=== PATIENT | male | born 1950 | race Caucasian/White ===

== ENCOUNTER 2016-06-10 06:29 | Inpatient (IN) | payer MEDICAID, OTHER ==
[~2016-06-10] VITALS: Ht 160 cm; Wt 67.4 kg
[2016-06-10] MEDS ORDERED: morphine 4 MG/ML VIAL IV STA ×2 (07:11→09:46)
[2016-06-10] MEDS ORDERED: SOD CHLORIDE 0.9% 1,000 ML IV STA (07:11)
[2016-06-10] MEDS ORDERED: ONDANSETRON 4 MG INJ IV STA (07:11)
[2016-06-10 07:40] LABS: ADD UMIC NO; BASOPHIL # 0.1 10^3/ul (0.0-0.1); BASOPHILS % 0.5 % (0.0-2.0); EOSINOPHILS # 0.2 10^3/ul (0.0-0.5); EOSINOPHILS % 1.4 % (0.0-7.0); HEMATOCRIT 46.2 % (42.0-52.0); HEMOGLOBIN 15.9 g/dl (14.0-18.0); LYMPHOCYTES # 1.2 10^3/ul (0.8-2.9); LYMPHOCYTES % 9.1 % (15.0-51.0); MEAN CORPUSCULAR HGB CONC 34.3 g/dl (32.0-37.0); MEAN CORPUSCULAR VOLUME 90.5 fl (82.0-101.0); MEAN PLATELET VOLUME 7.2 fl (7.4-10.4); MONOCYTE # 0.5 10^3/ul (0.3-0.9); MONOCYTES % 4.1 % (0.0-11.0); NEUTROPHIL # 11.2 10^3/ul (1.6-7.5); NEUTROPHILS % 84.9 % (39.0-77.0); PLATELET COUNT 226 10^3/UL (140-440); RED BLOOD COUNT 5.11 10^6/ul (4.70-6.10); RED CELL DISTRIBUTION WIDTH 13.7 % (11.5-14.5); UNCORRECTED WBC 13.2 10^3/ul (4.8-10.8); URINE BILIRUBIN (Dip) NEGATIVE (NEGATIVE); URINE BLOOD (Dip) NEGATIVE (NEGATIVE); URINE COLOR LT. YELLOW (YELLOW); URINE GLUCOSE (Dip) NEGATIVE (NEGATIVE); URINE KETONES (Dip) NEGATIVE (NEGATIVE); URINE LEUKOCYTE ESTERASE (Dip) NEGATIVE (NEGATIVE); URINE NITRITE (Dip) NEGATIVE (NEGATIVE); URINE TOTAL PROTEIN (Dip) NEGATIVE (NEGATIVE); URINE UROBILINOGEN (Dip) 0.2 E.U./dL (0.1-1.0); WHITE BLOOD COUNT 13.2 10^3/ul (4.8-10.8)
[2016-06-10 07:50] LABS: CONDITION 1
[2016-06-10 07:55] LABS: ALBUMIN 4.5 g/dl (3.3-4.9)
[2016-06-10 07:56] LABS: POTASSIUM 4.1 mmol/L (3.5-5.1)
[2016-06-10 07:58] LABS: ALBUMIN/GLOBULIN RATIO 1.15; BILIRUBIN,INDIRECT 0.4 mg/dl (0-1.1); BILIRUBIN,TOTAL 0.4 mg/dl (0.2-1.3); CALCIUM 9.8 mg/dl (8.4-10.2); TOTAL PROTEIN 8.4 g/dl (6.1-8.1)
[2016-06-10] MEDS ORDERED: SOD CHLORIDE 0.9% 100 ML ONE (08:02)
[2016-06-10] MEDS ORDERED: IOHEXOL 300MG/ML 150 ML BTL ONE (08:02)
--- NOTE | 2016-06-10 08:28 | RADRPT ---
PROCEDURE: CT Abdomen and Pelvis with contrast. CLINICAL INDICATION: Abdominal pelvic pain. Distension. TECHNIQUE: CT scan of the abdomen and pelvis with contrast was performed on a multi-detector high- resolution CT scanner. The patient was scanned following the uncomplicated intravenous administrati on of 100 cc of Omnipaque 300. Coronal and sagittal reformatted images were obtained from the axial source images. Images were reviewed on a high-resolution PACS workstation. The total exam CTDI equa ls 15.32 mGy and the total exam DLP equals 884.73 mGy-cm. One or more of the following dose reduction techniques were used: - Automated exposure control. - Adjustment of the mA and/or kV according to patient size. - Use of iterative reconstruction technique. COMPARISON: None. FINDINGS: CT abdomen: The lung bases are clear. The heart size is normal, without pericardial thickening or effusion. Th e liver is normal in size and density without focal mass or intrahepatic biliary dilatation. The sp deisi is normal in size and homogeneous in density. The stomach is partially collapsed, but is gross ly unremarkable. The pancreas as visualized is normal. The gallbladder and biliary tree are unrema rkable and there is no evidence for biliary dilatation. The adrenal glands are symmetric and normal . The kidneys are symmetrically unremarkable as well. No renal calculus or obstructive uropathy or mass lesion is seen. There is mild perinephric stranding and edema bilaterally, likely benign age-r elated and senescent in nature. The aorta is of normal caliber. Aortic vascular calcifications are present. There is no retroperit chavez lymphadenopathy. The nelly hepatis region is clear. The bowel and mesentery, as visualized, are equally unremarkable. CT pelvis: The small bowel loops situated within the pelvis are unremarkable. Appendicolith is seen within the base of the appendix. The appendix is thickened and inflamed and dilated with periappendiceal infl ammatory changes consistent with appendicitis. No focal fluid collection or abscess or free air is identified at this time. The pelvic organs are remarkable for enlargement of the prostate gland. C orrelate with PSA level. The pelvic sidewalls and inguinal regions are clear. The sigmoid colon an d rectum are remarkable for sigmoid diverticulosis. No pelvic mass or adenopathy is seen. No signif icant free fluid is identified. No acute inflammation is seen. The bladder is normal. The surrounding osseous structures are remarkable for minimal multilevel degenerative spondylosis of the spine. No osteolytic or osteoblastic lesion is detected. Significant posterior element facet a rthropathy of the lower lumbar spine is identified. IMPRESSION: 1. Positive acute appendicitis. 2. No abscess or free air is identified. 3. Enlarged prostate gland. Correlate PSA level. 4. Scattered benign chronic senescent changes. Call report was made and findings discussed with Dr. Hall in the ER at 8:27 a.m. on 06/10/2016. RPTAT: HMJB .Jean Escalante MD, MD Date Time Electronically viewed and signed by .Jean Escalante MD, on 06/10/2016 08:28 .B/
--- NOTE | 2016-06-10 08:57 | ERA ---
ER Documentation Chief Complaint Date/Time DATE: 06/10/16 TIME: 08:53 Chief Complaint DIFUSE AP, NAUSEA, ABD DISTENTION, STARTING YESTERDAY NIGHT HPI Patient presents with 12 hours of gradually increasing abdominal pain. He describes nausea without any vomiting. He feels that he is generally bloated. No fever, diarrhea, flank or back pain, dysuria, hematuria. He states the pain is worse with generalized movement. The pain is better if he lies still. He denies any chest pain, shortness of breath, congestion, rhinorrhea, sore throat , or otalgia. He states he has never experienced this pain before. He has not tried to eat or drink anything since yesterday. The pain is generalized throughout his abdomen. ROS All systems reviewed and are negative except as per history of present illness. Medications Home Meds Reported Medications [None] No Conflict Check 08/12/14 Allergies Allergies: Coded Allergies: No Known Allergy (Unverified , 08/12/14) PMhx/Soc History of Surgery: No Anesthesia Reaction: No Hx Neurological Disorder: No Hx Respiratory Disorders: No Hx Cardiac Disorders: No Hx Psychiatric Problems: No Hx Miscellaneous Medical Probl: No Hx Alcohol Use: Yes (OCCASIONAL) Hx Substance Use: No Hx Tobacco Use: Yes (5-6 CIGARETTES/DAY) Smoking Status: Current every day smoker Physical Exam Vitals Vital Signs Date Time Temp Pulse Resp B/P Pulse Ox O2 Delivery O2 Flow Rate FiO2 06/10/16 06:54 98.9 91 16 153/83 95 Physical Exam Const: Well-developed well-nourished male sitting on the bed calmly Head: Atraumatic Eyes: Normal Conjunctiva ENT: Normal External Ears, Nose and Mouth. Neck: Full range of motion..~ No meningismus. Resp: Clear to auscultation bilaterally Cardio: Regular rate and rhythm, no murmurs Abd: Soft, mild tenderness in the left upper and right upper quadrants with no rebound or guarding noted, decreased bowel sounds throughout. Skin: No petechiae or rashes Back: No midline or flank tenderness Ext: No cyanosis, or edema Neur: Awake and alert Psych: Normal Mood and Affect Result Diagram: 06/10/1620 06/10/16 0720 Results 24 hrs Laboratory Tests Test 06/10/16 07:20 Alanine Aminotransferase (ALT/SGPT) 27IU/L Albumin 4.5g/dl Albumin/Globulin Ratio 1.15 Alkaline Phosphatase 115IU/L Anion Gap 18 Aspartate Amino Transf (AST/SGOT) 22IU/L Basophils # 0.110^3/ul Basophils % 0.5% Blood Morphology Comment Blood Urea Nitrogen 18mg/dl Calcium Level 9.8mg/dl Carbon Dioxide Level 25mmol/L Chloride Level 101mmol/L Creatinine 1.00mg/dl Direct Bilirubin 0.00mg/dl Eosinophils # 0.210^3/ul Eosinophils % 1.4% Globulin 3.90g/dl Glucose Level 128mg/dl Hematocrit 46.2% Hemoglobin 15.9g/dl Indirect Bilirubin 0.4mg/dl Lipase 1003U/L Lymphocytes # 1.210^3/ul Lymphocytes % 9.1% Mean Corpuscular Hemoglobin 31.0pg Mean Corpuscular Hemoglobin Concent 34.3g/dl Mean Corpuscular Volume 90.5fl Mean Platelet Volume 7.2fl Monocytes # 0.510^3/ul Monocytes % 4.1% Neutrophils # 11.210^3/ul Neutrophils % 84.9% Nucleated Red Blood Cells # 0.010^3/ul Nucleated Red Blood Cells % 0.0/100WBC Platelet Count 07910^3/UL Potassium Level 4.1mmol/L Red Blood Count 5.1110^6/ul Red Cell Distribution Width 13.7% Sodium Level 140mmol/L Total Bilirubin 0.4mg/dl Total Protein 8.4g/dl Urine Bilirubin NEGATIVE Urine Clarity CLEAR Urine Color LT. YELLOW Urine Glucose NEGATIVE% Urine Hemoglobin NEGATIVE Urine Ketones NEGATIVE Urine Leukocyte Esterase NEGATIVE Urine Nitrite NEGATIVE Urine Specific [place] 1.020 Urine Total Protein NEGATIVE Urine Urobilinogen 0.2 E.U./dL Urine pH 6.5 White Blood Count 13.210^3/ul Current Medications Medications (Trade) Dose Ordered Sig/Roque Route PRN Reason Start Time Stop Time Status Last Admin Dose Admin Sodium Chloride (NS) 1,000 ml @ 1,000 mls/hr Q1H STAT IV 06/10/16 07:11 06/10/16 08:10 DC 06/10/16 07:31 Morphine Sulfate (morphine) 4 mg ONCE STAT IV 06/10/16 07:11 06/10/16 07:15 DC 06/10/16 07:32 Ondansetron HCl (Zofran Inj) 4 mg ONCE STAT IV 06/10/16 07:11 06/10/16 07:15 DC 06/10/16 07:31 Iohexol 150 ml 150 ml STK-MED ONCE .ROUTE 06/10/16 08:02 06/10/16 08:03 DC 06/10/16 08:36 Sodium Chloride (NS) 100 ml @ ud STK-MED ONCE .ROUTE 06/10/16 08:02 06/10/16 08:03 DC 06/10/16 08:36 Procedures/MDM Consult with Dr. JONES-he asks that the hospitalist admit the patient. He requests that he give him IV antibiotics and states he will remove his appendix either later today or tomorrow. Departure Diagnosis: Primary Impression: Appendicitis Qualified Code: K35.80 - Acute appendicitis, unspecified acute appendicitis type Additional Impression: Elevated lipase Condition: Good MILTON VARGHESE Jun 10, 2016 08:57
[2016-06-10] MEDS ORDERED: ERTAPENEM SODIUM 1 GM in SOD CHLORIDE 0.9% 100 ML IVPB ONE (09:00)
[2016-06-10] MEDS ORDERED: ACETAMINOPHEN 325 MG TAB PO PRN (09:30)
[2016-06-10] MEDS ORDERED: ONDANSETRON 4 MG INJ IV PRN (09:30)
[2016-06-10 10:09] VITALS: TEMP 98.7
[2016-06-10 11:00] VITALS: BP 152/87; PULSE 91; RESP 20
[2016-06-10] MEDS ORDERED: HYDROmorphONE 1 MG/ML SYG IV PRN ×2 (11:30)
--- NOTE | 2016-06-10 11:37 | HP ---
Date/Time of Note Date/Time of Note DATE: 06/10/16 TIME: 11:34 Assessment/Plan VTE Prophylaxis VTE Prophylaxis Intervention: LMWH Assessment/Plan Chief Complaint/Hosp Course 1) appendicitis - consult surgery for appendectomy - pain medication - IV antibiotics Problems: HPI/ROS Admit Date/Time Admit Date/Time Jun 10, 2016 at 09:09 Hx of Present Illness Patient without significiant medical problems comes in with one day of abdominal pain, some nausea and vomiting. No previous episodes of the same. Patient was found in the ER to have appendicitis and so is admitted for further treatment, probably including appendectomy PMH/Family/Social Past Medical History Medical History: no pertinent history Past Surgical History Past Surgical Hx: no surgical history Social History Smoking Status: Current every day smoker Drug Use: none Exam/Review of Systems Vital Signs Vitals Vital Signs Date Time Temp Pulse Resp B/P Pulse Ox O2 Delivery O2 Flow Rate FiO2 06/10/16 10:09 98.7 93 16 141/86 96 Exam Constitutional: alert, well developed Head: atraumatic, normocephalic Neck: supple Respiratory: clear to auscultation Cardiovascular: regular rate and rhythm Gastrointestinal: soft, tender Extremities: normal pulses Labs Result Diagram: 06/10/16 0720 06/10/16 0720 Medications Medications Current Medications Hydromorphone HCl (Dilaudid) 0.5 mg Q2H PRN IV PAIN LEVEL 1-5; Start 06/10/16 at 11:30 ATIF MCGREGOR Jun 10, 2016 11:37
--- NOTE | 2016-06-10 11:41 | CONS ---
Date/Time of Note Date/Time of Note DATE: 06/10/16 TIME: 11:41 Assessment/Plan Assessment/Plan Additional Assessment/Plan [facility] INITIAL INPATIENT CONSULTATION NOTE ASSESSMENT AND PLAN: A very-pleasant 65-year-old gentleman with comorbid issues including BMI 25.4 and no other obvious or major known medical issues, presenting with what appears to be acute appendicitis as well as pancreatitis ( lipase greater than 1000). My clinical impression is that of acute appendicitis and likely elevation in lipase that is secondary to his appendicitis, but given the possibility of pancreatitis, it is important for us to observe the patient carefully for a few hours prior to exposing him to anesthesia and risk of operation. Realistically, his risk of worsening appendicitis is low and if that is the case, we can certainly operate on him tonight. Otherwise I had the patient on the schedule for tomorrow morning. I explained the operation as well as the rationale behind my management to the patient and his son and answered all of their questions to the best my ability. I believe that they understand and wish to proceed. With above assessment, I've recommended the followin. Admit to the hospital 2. Symptom control 3. IV fluids 4. IV antimicrobials 5. Recheck lipase and amylase in the morning 6. Laparoscopic, possible open appendectomy tomorrow morning Thank you very much for having me involved in the care of this very pleasant gentleman and his wonderful family. I will continue to follow him along with you closely and will be available to answer any questions at area code . TOTAL VISIT TIME: 45 minutes of which more than half was spent in [id number] discussion with the patient, discussions with family, as well as coordination of care between multiple physicians and providers. Disclaimer: Inadvertent spelling and grammatical errors are likely due to EHR/ dictation software use and do not reflect on the quality of delivered patient care. Also, please note that the electronic time recorded on this node does not necessarily reflect the actual time of the visit. PLACE OF SERVICE: [facility], sixth floor DATE OF CONSULTATION: 06/10/2016 HISTORY OF PRESENT ILLNESS: The patient is a very pleasant 65-year-old gentleman with comorbid issues including BMI 25.4 and no other obvious or major known medical issues, presenting with what appears to be acute appendicitis as well as pancreatitis (lipase greater than 1000). Symptoms started 12 hours prior to admission and were diffuse abdominal pain with nausea and no major vomiting. No blood in the stool or urine. No prior similar episodes. No prior abdominal surgeries. Had prostate issues in the past. Workup included laboratory values showing elevated white blood cell count and a CT scan that showed evidence for appendicitis. Interestingly, his lipase was also elevated. Patient does not report any hematemesis or blood in the stool or urine. Last bowel movement was yesterday as well as flatus. No reported chronic issues with constipation or diarrhea. No changes in hearing or vision, difficulty with breathing or swallowing, prior cardiopulmonary disease new skin rashes, joint pain, musculoskeletal disease, neurologic, psychiatric, or psychologic problems. Patient described the pain as a diffuse type pain without radiation, between 8 to 10 out of 10 in severity and mostly dull in character. At my visit , the patient did have significant pain complaints. No major EtOH. No prior biliary problems. No prior pancreatitis. PAST MEDICAL HISTORY 1. BMI 25.4 2. Prostate issues 3. Diverticulosis of the colon 4. Internal hemorrhoids PAST SURGICAL HISTORY 1. Status post colonoscopy August 2014 with removal of sigmoid colon polyp at 20 cm and diagnosis of diverticulosis of the colon and internal hemorrhoids ALLERGIES: NO KNOWN DRUG ALLERGIES MEDICATIONS None SOCIAL HISTORY: The patient lives with family. Sign Tob; - ETOH; - IVDU FAMILY HISTORY: There are no significant medical, surgical or oncologic issues in the family as reported by the patient or reflected in the chart. REVIEW OF SYSTEMS: No other pertinent positives or pertinent negatives in a complete 14 point review of systems PHYSICAL EXAMINATION GENERAL: The patient appears to be a very pleasant gentleman of descent lying in bed, appearing stated age, BMI 25.4 and otherwise in no acute distress. VITAL SIGNS: AVSS (please also see below) HEENT: Normocephalic and atraumatic. Extraocular muscles and hearing are grossly intact bilaterally and symmetrically. Sclerae are nonicteric. Oral cavity is clear; oral mucosa appear to be pink and moist. Dentition: fair. NECK: Supple. There is no lymphadenopathy or JVD. There is no submental, submandibular or supraclavicular lymphadenopathy. CHEST: Rises symmetrically with each breath; patient is breathing comfortably. There are no audible wheezes, rales or rhonchi on the gross exam. HEART: Pulse is regular and palpable on the right wrist. Capillary refill is normal. Carotid pulses are palpable bilaterally and symmetrically in the neck. EXTREMITIES: Lower extremities contain no pitting edema around the ankles bilaterally and symmetrically. ABDOMEN: Abdomen is soft, mild to moderately tender in the abdomen which appears to be worse in the right lower quadrant but also present in the right upper quadrant as well as mid quadrants and nondistended. No evidence of ascites, organomegaly, caput medusae, engorged subcutaneous veins, or other abnormalities. There are no peritoneal signs or guarding. SKIN: Appears to be pink and feels warm to touch. NEUROLOGIC: Awake, alert, and follows commands appropriately. LABORATORY DATA: See below IMAGING: See electronic chart. Please note that I've personally reviewed all pertinent available images and I agree in general with their overall reported findings. Consultation Date/Type/Reason Admit Date/Time Jun 10, 2016 at 09:09 Past Medical History Medical History: no pertinent history Past Surgical History Past Surgical Hx: no surgical history Social History Smoking Status: Current every day smoker Drug Use: none Exam/Review of Systems Vital Signs Vitals Vital Signs Date Time Temp Pulse Resp B/P Pulse Ox O2 Delivery O2 Flow Rate FiO2 06/10/16 10:09 98.7 93 16 141/86 96 Results Result Diagram: 06/10/16 0720 06/10/16 0720 Results 24 hrs Laboratory Tests Test 06/10/16 07:20 Alanine Aminotransferase (ALT/SGPT) 27 Albumin 4.5 Albumin/Globulin Ratio 1.15 Alkaline Phosphatase 115 Anion Gap 18 H Aspartate Amino Transf (AST/SGOT) 22 Basophils # 0.1 Basophils % 0.5 Blood Morphology Comment Blood Urea Nitrogen 18 Calcium Level 9.8 Carbon Dioxide Level 25 Chloride Level 101 Creatinine 1.00 Direct Bilirubin 0.00 Eosinophils # 0.2 Eosinophils % 1.4 Globulin 3.90 H Glucose Level 128 Hematocrit 46.2 Hemoglobin 15.9 Indirect Bilirubin 0.4 Lipase 1003 H Lymphocytes # 1.2 Lymphocytes % 9.1 L Mean Corpuscular Hemoglobin 31.0 Mean Corpuscular Hemoglobin Concent 34.3 Mean Corpuscular Volume 90.5 Mean Platelet Volume 7.2 L Monocytes # 0.5 Monocytes % 4.1 Neutrophils # 11.2 H Neutrophils % 84.9 H Nucleated Red Blood Cells # 0.0 Nucleated Red Blood Cells % 0.0 Platelet Count 226 Potassium Level 4.1 Red Blood Count 5.11 Red Cell Distribution Width 13.7 Sodium Level 140 Total Bilirubin 0.4 Total Protein 8.4 H Urine Bilirubin NEGATIVE Urine Clarity CLEAR Urine Color LT. YELLOW Urine Glucose NEGATIVE Urine Hemoglobin NEGATIVE Urine Ketones NEGATIVE Urine Leukocyte Esterase NEGATIVE Urine Nitrite NEGATIVE Urine Specific [place] 1.020 Urine Total Protein NEGATIVE Urine Urobilinogen 0.2 E.U./dL Urine pH 6.5 White Blood Count 13.2 H Medications Medications Current Medications Hydromorphone HCl (Dilaudid) 0.5 mg Q2H PRN IV PAIN LEVEL 1-5; Start 06/10/16 at 11:30 Enoxaparin Sodium (Lovenox) 30 mg BID SC ; Start 06/10/16 at 21:00; Status CHUCKV ALFRED JONES M.D. Jun 10, 2016 11:41
[2016-06-10 15:39] VITALS: Ht 160 cm; Wt 67.4 kg
[2016-06-10 20:00] VITALS: BP 114/72; RESP 20
[2016-06-10] MEDS: ENOXAPARIN 30 MG/0.3 ML SYG SC SCH (20:40)
[2016-06-11] VITALS (20 sets, daily range): BP systolic 103–121; BP diastolic 57–75; PULSE 71–98; RESP 13–20
[2016-06-11 06:07] LABS: BASOPHILS % 0.4 % (0.0-2.0); EOSINOPHILS # 0.4 10^3/ul (0.0-0.5); EOSINOPHILS % 3.2 % (0.0-7.0); HEMOGLOBIN 14.3 g/dl (14.0-18.0); LYMPHOCYTES # 2.6 10^3/ul (0.8-2.9); LYMPHOCYTES % 21.2 % (15.0-51.0); MEAN CORPUSCULAR HEMOGLOBIN 31.2 pg (29.0-33.0); MEAN CORPUSCULAR VOLUME 91.8 fl (82.0-101.0); MEAN PLATELET VOLUME 7.4 fl (7.4-10.4); MONOCYTE # 0.9 10^3/ul (0.3-0.9); MONOCYTES % 7.5 % (0.0-11.0); NEUTROPHIL # 8.2 10^3/ul (1.6-7.5); NEUTROPHILS % 67.7 % (39.0-77.0); PLATELET COUNT 219 10^3/UL (140-440); RED BLOOD COUNT 4.58 10^6/ul (4.70-6.10); RED CELL DISTRIBUTION WIDTH 13.6 % (11.5-14.5); UNCORRECTED WBC 12.1 10^3/ul (4.8-10.8); WHITE BLOOD COUNT 12.1 10^3/ul (4.8-10.8)
[2016-06-11 06:18] LABS: INR 1.04; PROTIME 13.6 Sec (12.2-14.2); PT RATIO 1.1
[2016-06-11 06:19] LABS: PARTIAL THROMBOPLASTIN TIME 30.3 Sec (25.0-35.0)
[2016-06-11 06:21] LABS: CONDITION 1
[2016-06-11 06:53] LABS: POTASSIUM 3.8 mmol/L (3.5-5.1)
[2016-06-11 06:55] LABS: ALBUMIN/GLOBULIN RATIO 1.11; CREATININE 1.22 mg/dl (0.61-1.24); TOTAL PROTEIN 7.6 g/dl (6.1-8.1)
[2016-06-11 06:56] LABS: CALCIUM 9.1 mg/dl (8.4-10.2); MAGNESIUM 1.8 mg/dl (1.7-2.5); PHOSPHORUS 3.7 mg/dl (2.5-4.9)
--- NOTE | 2016-06-11 07:28 | HPN ---
Date/Time of Note Date/Time of Note DATE: 06/11/16 TIME: 07:28 Interval H&P Admission Note Pt. seen H&P reviewed: No system changes Pt. seen H&P reviewed. No system changes (I attest that I have seen and examined the patient and reviewed the operation in detail, as well as its risks , benefits and alternatives of the operation). I attest that I have seen and examined the patient and reviewed in detail the operation, and its associated risks, benefits and alternative. I have answered all the patient's questions to the best of my ability and the patient wishes to proceed. Please refer to rest of electronic medical record for additional updates. ALFRED JONES M.D. Jun 11, 2016 07:28
[2016-06-11] MEDS ORDERED: BUPIVACAINE 0.25%/EPI (SDV) 30 ML INJ ONE (07:48)
[2016-06-11] MEDS ORDERED: MIDAZOLAM 1 MG/ML 2 ML INJ ONE (07:48)
[2016-06-11] MEDS ORDERED: PIPER-TAZO 3.375 GM IV (PMX) 100 ML ONE (08:14)
[2016-06-11] MEDS: ENOXAPARIN 30 MG/0.3 ML SYG SC SCH (08:56)
[2016-06-11] MEDS ORDERED: morphine 10 MG INJ ONE (09:03)
[2016-06-11] MEDS ORDERED: ETOMIDATE 20 MG INJ ONE (09:16)
[2016-06-11] MEDS ORDERED: NEOSTIGMINE 3 MG/3 ML SYRINGE ONE (09:16)
[2016-06-11] MEDS ORDERED: GLYCOPYRROLATE 0.4 MG INJ ONE (09:16)
[2016-06-11] MEDS ORDERED: LIDOCAINE 2% (SDV) 5 ML INJ ONE (09:16)
[2016-06-11] MEDS ORDERED: ONDANSETRON 4 MG INJ ONE (09:16)
[2016-06-11] MEDS ORDERED: HYDROmorphONE 1 MG/ML SYG IV PRN (09:30)
[2016-06-11] MEDS ORDERED: BISACODYL 10 MG SUPP PR PRN (09:30)
[2016-06-11] MEDS ORDERED: HYDROCODONE/APAP (5/325) TAB PO PRN ×2 (09:30)
[2016-06-11] MEDS ORDERED: NA PHOSPHATE/BIPHOS 133 ML ENEMA PR PRN (09:30)
[2016-06-11] MEDS ORDERED: DOCUSATE SODIUM 100 MG CAP PO PRN (09:30)
[2016-06-11] MEDS ORDERED: MEPERIDINE 25 MG INJ IV PRN (10:00)
[2016-06-11] MEDS ORDERED: ONDANSETRON 4 MG INJ IV PRN (10:00)
[2016-06-11] MEDS ORDERED: FENTAnyl 50 MCG/ML VIAL IV PRN (10:00)
[2016-06-11] MEDS ORDERED: morphine (1 MG/ML) 10ML SYRINGE IV PRN (10:00)
[2016-06-11] MEDS ORDERED: DIPHENHYDRAMINE 50 MG INJ IV PRN (10:00)
[2016-06-11] MEDS: D5W-0.45 NACL + KCL 20 MEQ 1,000 ML IV SCH ×3 (11:41→21:23)
[2016-06-11] MEDS: HYDROmorphONE 1 MG/ML SYG IV PRN ×2 (11:42→18:59)
--- NOTE | 2016-06-11 12:07 | OPR ---
Date/Time of Note Date/Time of Note DATE: 06/11/16 TIME: 12:06 Operative Report Operative Findings [facility] INPATIENT OPERATIVE NOTE PLACE OF SERVICE: [facility] DATE OF SURGERY: 06/11/2016 PREOPERATIVE DIAGNOSIS: 1. Acute appendicitis 2. Mild pancreatitis 3. BMI 25.4 4. Prostate issues 5. Diverticulosis of the colon 6. Internal hemorrhoids 7. Status post colonoscopy August 2014 with removal of sigmoid colon polyp at 20 cm and diagnosis of diverticulosis of the colon and internal hemorrhoids POSTOPERATIVE DIAGNOSIS: 1. Acute appendicitis 2. Mild pancreatitis 3. BMI 25.4 4. Prostate issues 5. Diverticulosis of the colon 6. Internal hemorrhoids 7. Status post colonoscopy August 2014 with removal of sigmoid colon polyp at 20 cm and diagnosis of diverticulosis of the colon and internal hemorrhoids OPERATION: 1. Laparoscopic appendectomy 2. Partial cecectomy SURGEON: Alfred Meier M.D. CHUMMER: None ANESTHESIA: General endotracheal tube anesthesia ANESTHESIOLOGIST: Irma Choi M.D. BRIEF SUMMARY: An otherwise uncomplicated laparoscopic appendectomy along with slight portion of the cecum was performed with findings of non-perforated appendicitis the base of the appendix. BRIEF HISTORY: The patient is a very-pleasant 65-year-old gentleman with comorbid issues including BMI 25.4 and no other obvious or major known medical issues, presenting with what appears to be acute appendicitis as well as pancreatitis (lipase greater than 1000). My clinical impression is that of acute appendicitis and likely elevation in lipase that is secondary to his appendicitis, but given the possibility of pancreatitis, it is important for us to observe the patient carefully for a few hours prior to exposing him to anesthesia and risk of operation. On hospital day #1, patient's lipase had normalized and amylase was slightly elevated but the patient appeared to be clinically well and I deemed the patient adequately stable to undergo the operation. I met with the patient and family and counseled them regarding the possible options of treatment, and I strongly suggested a laparoscopic, possible open appendectomy. We reviewed the operation in detail as well as the risks, benefits, alternatives, and expected outcomes of this operation. After careful consideration of all the risks, benefits, and alternatives, the patient and family appeared to understand those risks and wished to proceed with surgery. For a detailed report of my consultation with patient and family, please refer to my separate consultation note. STATEMENT OF THE INFORMED CONSENT: The patient and family appeared to understand the risks of the operation to include, but not be limited to risk of postoperative pain and scar tissue, possible infection or bleeding requiring other interventions such as opening the wound, placement of drainage catheters, or other operative interventions; possible injury to surrounding to structures including bowel, bladder, bile duct, or blood vessels, or solid organs such as liver, kidney, or pancreas requiring other interventions or procedures; possible leakage of bowel from anastomotic sites or suture lines causing significant increase in morbidity and mortality and requiring multiple interventions including but not limited to, placement of drainage catheters, imaging studies, as well as operative interventions; possible other source of sepsis such as urinary tract infections or pneumonias, or other sources of potentially life threatening problems such as deep venous thrombus formation causing pulmonary embolism, myocardial arrhythmias and infarctions, and even . We also briefly discussed the potential need to receive blood products and their potential complications of blood transfusion reactions, transmission of infections, or other complications. After careful consideration of all their options, the patient and family appeared to understand and wished to proceed with surgery. DESCRIPTION OF PROCEDURE: After obtaining informed consent, the patient was brought into the operating room and was placed in a normal supine position, where successful general endotracheal tube anesthesia was performed. Intravenous access was already in place and intravenous antimicrobials had been appropriately chosen and dosed prior to the operation. The patient's abdominal skin was prepped and draped from the nipple line down to the level of the upper thighs in the usual sterile fashion. We then called a surgical time-out where the patient's identification, date of , nature of the operation, allergies , presence of intravenous antimicrobials, presence of needed equipment, and any other concerns were reviewed and agreed upon by all members of the operating room team. We then started the operation by placing a 5 mm skin incision in the left lower quadrant and then introduced a 5 mm [employer] trocar into the peritoneal space, visualizing all the layers of the abdominal wall as we entered. Note that there was no indication of any injury to underlying structures with our entry into the peritoneal space. We insufflated the abdominal cavity to a maximum pressure of 15 mmHg and again inspected the area of insertion and ensured no obvious injury to underlying structures prior to inspecting the abdominal cavity and showing no obvious pus, bowel contents, or other abnormal features. We could not see the appendix very well. We, therefore, injected the future sites of our other trocars with 0.25% Marcaine with epinephrine and placed a 5 mm [employer] trocar into the midline suprapubic area, taking care not to injure the bladder. Note that the patient had not urinated prior to the operation, and bladder was somewhat full. We also placed a 12 mm trocar in the umbilical midline area, all under direct visualization. With our instruments in place, we had excellent visualization and access to the right lower quadrant. We then identified the appendix, which was inflamed near the base of the appendix and had normal distal portion of the appendix. No obvious evidence of malignancy was noted; but in order to ensure negative margins in case it was malignancy in this area, I decided to mobilize the cecum and be able to perform a partial cecectomy. I then went ahead and used judicious amount of cautery as well as mostly blunt dissection to circumferentially isolate the base of the appendix and then transected this using 2 firings of the white load of the Endo- TATIANA stapler. Note that the resection line included portion of the cecum in order to make sure that we include the base of the appendix and the specimen. We also repeated the firing on the mesentery of the appendix and completely disconnected the organ from the colon, delivered this out through the 12 mm trocar site inside of an EndoCatch bag without having to enlarge the fascial defect as well as without contaminating the wound. The specimen was sent to Pathology for further analysis. Again we could not feel an obvious mass in the specimen. We then ensured adequate hemostasis and bile stasis, removed all our equipment including the pneumoperitoneum from the abdominal cavity prior to closing the infraumbilical fascia with 1 [id number] 0 Vicryl suture on a UR -6 needle, washing the wounds with copious amounts of normal saline, injecting the initial insertion point of the trocar with 0.25% Marcaine with epinephrine, and then closing the skin using interrupted 4-0 Monocryl sutures. Light dressing was then applied. At the end of the operation, both the sponge count and needle count were reportedly correct x2. The patient tolerated the procedure without any reported complications. ESTIMATED BLOOD LOSS: 10 ml BLOOD OR BLOOD PRODUCT TRANSFUSIONS: None to my knowledge. SPECIMENS: 1. Appendix COMPLICATIONS: None. DISPOSITION: Recovery area. Disclaimer: Inadvertent spelling and grammatical errors are likely due to EHR/ dictation software use and do not reflect on the quality of delivered patient care. ALFRED MEIER M.D. Jun 11, 2016 12:06
--- NOTE | 2016-06-11 12:21 | RADRPT ---
Vent Rate: 99 bpm RR Interval: 0 msec MI Interval: 172 msec QRS Duration: 78 msec QT Interval: 332 msec QTC Interval: 426 msec P-R-T [place]: 36 - 19 - 53 degrees Normal sinus rhythm Possible Anterior infarct , age undetermined Abnormal ECG Electronically Signed By: Tyrone Anguiano [id number]
--- NOTE | 2016-06-11 12:45 | PN ---
Date/Time of Note Date/Time of Note DATE: 06/11/16 TIME: 12:44 Assessment/Plan VTE Prophylaxis VTE Prophylaxis Intervention: LMWH Lines/Catheters [facility] Peripheral IV Assessment/Plan Chief Complaint/Hosp Course 1) appendicitis - consult surgery for appendectomy - pain medication - IV antibiotics 2) elevated lipase - has resolved, probably associated with #1 Problems: Subjective 24 Hr Interval Summary Free Text/Dictation Patient is away from room, most likely having appendectomy Exam/Review of Systems Vital Signs Vitals Vital Signs Date Time Temp Pulse Resp B/P Pulse Ox O2 Delivery O2 Flow Rate FiO2 06/11/16 10:28 98.9 82 14 111/68 97 Room Air 06/11/16 09:48 Intake and Output 06/10/16 06/10/16 06/11/16 14:59 22:59 06:59 Intake Total 0 ml Balance 0 ml Exam Unable to examine patient as he is away from room Results Result Diagram: 06/11/16 0505 06/11/16 0505 Results 24 hrs Laboratory Tests Test 06/11/16 05:05 Activated Partial Thromboplast Time 30.3 Alanine Aminotransferase (ALT/SGPT) 21 Albumin 4.0 Albumin/Globulin Ratio 1.11 Alkaline Phosphatase 100 Amylase Level 142 H Anion Gap 15 Aspartate Amino Transf (AST/SGOT) 20 Basophils # 0.0 Basophils % 0.4 Blood Urea Nitrogen 14 Calcium Level 9.1 Carbon Dioxide Level 26 Chloride Level 102 Creatinine 1.22 Direct Bilirubin 0.00 Eosinophils # 0.4 Eosinophils % 3.2 Globulin 3.60 H Glucose Level 98 Hematocrit 42.0 Hemoglobin 14.3 INR International Normalized Ratio 1.04 Indirect Bilirubin 1.0 Lactic Acid Level 1.1 Lipase 90 Lymphocytes # 2.6 Lymphocytes % 21.2 Magnesium Level 1.8 Mean Corpuscular Hemoglobin 31.2 Mean Corpuscular Hemoglobin Concent 34.0 Mean Corpuscular Volume 91.8 Mean Platelet Volume 7.4 Monocytes # 0.9 Monocytes % 7.5 Neutrophils # 8.2 H Neutrophils % 67.7 Nucleated Red Blood Cells # 0.0 Nucleated Red Blood Cells % 0.0 Phosphorus Level 3.7 Platelet Count 219 Potassium Level 3.8 Prothrombin Time 13.6 Prothrombin Time Ratio 1.1 Red Blood Count 4.58 L Red Cell Distribution Width 13.6 Sodium Level 139 Total Bilirubin 1.0 Total Protein 7.6 White Blood Count 12.1 H Medications Medications Current Medications Potassium Chloride/Dextrose/ Sod Cl (D5-1/2ns + KCl 20 Meq) 1,000 ml @ 100 mls/ hr Q10H IV Last administered on 06/11/16 11:41; Admin Dose 100 MLS/HR; Start at 09:29 Acetaminophen/ Hydrocodone Bitart ([place] (5/325)) 1 tab Q4H PRN PO PAIN LEVEL 4 -7; Start 06/11/16 at 09:30 Acetaminophen/ Hydrocodone Bitart ([place] (5/325)) 2 tab Q4H PRN PO PAIN LEVEL 7 -10; Start 06/11/16 at 09:30 Hydromorphone HCl (Dilaudid) 0.5 mg Q2 PRN IV PAIN; Start 06/11/16 at 09:30 Hydromorphone HCl (Dilaudid) 1 mg Q2 PRN IV PAIN Last administered on 06/11/16 11:42; Admin Dose 1 MG; Start 06/11/16 at 09:30 Docusate Sodium (Colace) 100 mg BID PRN PO CONSTIPATION; Start 06/11/16 at 09:30 Bisacodyl (Dulcolax Supp) 10 mg BID PRN [place] CONSTIPATION; Start 06/11/16 at 09:30 Sodium Biphosphate/ Sodium Phosphate (Fleet Enema) 133 ml BID PRN [place] CONSTIPATION; Start 06/11/16 at 09:30 Famotidine (Pepcid Iv) 20 mg DAILY IV ; Start 06/12/16 at 09:00 Enoxaparin Sodium (Lovenox) 40 mg DAILY SC ; Start 06/12/16 at 09:00 ATIF MCGREGOR Jun 11, 2016 12:45
[2016-06-12 03:00] VITALS: BP 115/75; PULSE 81; RESP 18
[2016-06-12] MEDS: D5W-0.45 NACL + KCL 20 MEQ 1,000 ML IV SCH (05:29)
[2016-06-12 06:01] LABS: BASOPHILS % 0.5 % (0.0-2.0); EOSINOPHILS # 0.4 10^3/ul (0.0-0.5); EOSINOPHILS % 4.6 % (0.0-7.0); HEMATOCRIT 39.2 % (42.0-52.0); HEMOGLOBIN 13.3 g/dl (14.0-18.0); LYMPHOCYTES # 1.6 10^3/ul (0.8-2.9); LYMPHOCYTES % 19.4 % (15.0-51.0); MEAN CORPUSCULAR HEMOGLOBIN 31.3 pg (29.0-33.0); MEAN CORPUSCULAR VOLUME 92.1 fl (82.0-101.0); MEAN PLATELET VOLUME 7.5 fl (7.4-10.4); MONOCYTE # 0.7 10^3/ul (0.3-0.9); MONOCYTES % 8.9 % (0.0-11.0); NEUTROPHIL # 5.6 10^3/ul (1.6-7.5); NEUTROPHILS % 66.6 % (39.0-77.0); PLATELET COUNT 202 10^3/UL (140-440); RED BLOOD COUNT 4.26 10^6/ul (4.70-6.10); RED CELL DISTRIBUTION WIDTH 13.7 % (11.5-14.5); UNCORRECTED WBC 8.5 10^3/ul (4.8-10.8); WHITE BLOOD COUNT 8.5 10^3/ul (4.8-10.8)
[2016-06-12 06:02] LABS: INR 1.04; PROTIME 13.6 Sec (12.2-14.2); PT RATIO 1.1
[2016-06-12 06:03] LABS: PARTIAL THROMBOPLASTIN TIME 28.2 Sec (25.0-35.0)
[2016-06-12 06:06] LABS: ALBUMIN 3.4 g/dl (3.3-4.9); CONDITION 1
[2016-06-12 06:09] LABS: CREATININE 1.15 mg/dl (0.61-1.24); TOTAL PROTEIN 6.8 g/dl (6.1-8.1)
[2016-06-12 06:10] LABS: BILIRUBIN,INDIRECT 0.7 mg/dl (0-1.1); BILIRUBIN,TOTAL 0.7 mg/dl (0.2-1.3); CALCIUM 8.5 mg/dl (8.4-10.2); MAGNESIUM 1.8 mg/dl (1.7-2.5); PHOSPHORUS 3.9 mg/dl (2.5-4.9)
[2016-06-12 07:11] VITALS: BP 97/66; RESP 18
[2016-06-12] MEDS ORDERED: FAMOTIDINE 20 MG INJ IV SCH (09:00)
[2016-06-12] MEDS ORDERED: ENOXAPARIN 40 MG/0.4 ML SYG SC SCH (09:00)
[2016-06-12] MEDS ORDERED: HYDR-3498 PO (11:51)
--- NOTE | 2016-06-12 11:55 | DS ---
Date/Time of Note Date/Time of Note DATE: 06/12/16 TIME: 11:52 Discharge Summary Admission/Discharge Info Admit Date/Time Jun 10, 2016 at 09:09 Discharge Date/Time 06/12/16 Final Diagnosis 1) appendicitis Patient Condition: Good Hx of Present Illness Patient without significiant medical problems comes in with one day of abdominal pain, some nausea and vomiting. No previous episodes of the same. Patient was found in the ER to have appendicitis and so is admitted for further treatment, probably including appendectomy Hospital Course Patient comes in with abdominal pain and found to have appendicitis. Patient underwent appendectomy and tolerated the procuedure fine. Once cleared by surgery, patient was deemed to be stable to be discharged and was sent home. 1) appendicitis - consult surgery for appendectomy - pain medication - IV antibiotics 2) elevated lipase - has resolved, probably associated with #1 Home Meds Discontinued Reported Medications [None] No Conflict Check 08/12/14 Pending Labs Laboratory Tests Test 06/12/16 05:07 Activated Partial Thromboplast Time 28.2Sec (25.0-35.0) Alanine Aminotransferase (ALT/SGPT) 22IU/L (13-69) Albumin 3.4g/dl (3.3-4.9) Albumin/Globulin Ratio 1.00 Alkaline Phosphatase 80IU/L (42-121) Amylase Level 269U/L (11-123) Anion Gap 14 (8-16) Aspartate Amino Transf (AST/SGOT) 16IU/L (15-46) B-Type Natriuretic Peptide 132PG/ML (0-125) Basophils # 0.010^3/ul (0.0-0.1) Basophils % 0.5% (0.0-2.0) Blood Urea Nitrogen 11mg/dl (7-20) Calcium Level 8.5mg/dl (8.4-10.2) Carbon Dioxide Level 26mmol/L (21-31) Chloride Level 104mmol/L (97-110) Creatinine 1.15mg/dl (0.61-1.24) Direct Bilirubin 0.00mg/dl (0.00-0.20) Eosinophils # 0.410^3/ul (0.0-0.5) Eosinophils % 4.6% (0.0-7.0) Globulin 3.40g/dl (1.3-3.2) Glucose Level 103mg/dl (70-220) Hematocrit 39.2% (42.0-52.0) Hemoglobin 13.3g/dl (14.0-18.0) INR International Normalized Ratio 1.04 Indirect Bilirubin 0.7mg/dl (0-1.1) Lipase 116U/L (23-300) Lymphocytes # 1.610^3/ul (0.8-2.9) Lymphocytes % 19.4% (15.0-51.0) Magnesium Level 1.8mg/dl (1.7-2.5) Mean Corpuscular Hemoglobin 31.3pg (29.0-33.0) Mean Corpuscular Hemoglobin Concent 34.0g/dl (32.0-37.0) Mean Corpuscular Volume 92.1fl (82.0-101.0) Mean Platelet Volume 7.5fl (7.4-10.4) Monocytes # 0.710^3/ul (0.3-0.9) Monocytes % 8.9% (0.0-11.0) Neutrophils # 5.610^3/ul (1.6-7.5) Neutrophils % 66.6% (39.0-77.0) Nucleated Red Blood Cells # 0.010^3/ul (0.0-0.0) Nucleated Red Blood Cells % 0.0/100WBC (0.0-0.0) Phosphorus Level 3.9mg/dl (2.5-4.9) Platelet Count 14603^3/UL (140-440) Potassium Level 4.0mmol/L (3.5-5.1) Prothrombin Time 13.6Sec (12.2-14.2) Prothrombin Time Ratio 1.1 Red Blood Count 4.2610^6/ul (4.70-6.10) Red Cell Distribution Width 13.7% (11.5-14.5) Sodium Level 140mmol/L (135-144) Total Bilirubin 0.7mg/dl (0.2-1.3) Total Protein 6.8g/dl (6.1-8.1) White Blood Count 8.510^3/ul (4.8-10.8) ATIF MCGREGOR Jun 12, 2016 11:55
--- NOTE | 2016-06-12 16:12 | PN ---
Date/Time of Note Date/Time of Note DATE: 06/12/16 TIME: 08:09 Assessment/Plan Lines/Catheters IV Catheter Type (from Nrs): Peripheral IV Assessment/Plan Assessment/Plan [facility] Progress Note Date of Service: 06/12/16 Today's Impression & Plan: Overall doing well post op without major issues. No major wound problems. No obvious post operative complication. With above assessment, I've recommended the following for today: 1. Ok to d/c from my standpoint 2. Please include the following in patient's d/c instructions: Please call [phone] if any of fever, nausea, vomiting, discharge from wound , wound redness, increase or sudden pain, blood in stool or vomit, or any other unusual signs or symptoms. Also, please call the same number in a few days to schedule an appointment for your follow up visit. Patient may remove dressings tomorrow. Showers OK starting tomorrow. No swimming , hot tub or bath for 2 weeks. No lifting more than 25 lbs for 8 weeks. Thank you again for your great care of this very pleasant patient and wonderful family. If there are any questions, please feel free to call me at [phone]. TOTAL VISIT TIME: 20 minutes of which more than half was spent in [id number] discussion with the patient, possibly including family, as well as coordination of care between multiple physicians and providers. Disclaimer: Inadvertent spelling or grammatical errors are likely due to EHR/ dictation software use and do not reflect on the overall quality of patient care. Updated Clinical Summary: The patient is a very-pleasant 65-year-old gentleman with comorbid issues including BMI 25.4 and no other obvious or major known medical issues, presenting with what appears to be acute appendicitis as well as pancreatitis ( lipase greater than 1000). After 24 hour wait, lipase had improved. S/p lap appy with partial cecectomy 06/11/16. Past and Present Comorbidities: 1. Acute appendicitis, s/p lap appy with partial cecectomy 2. Mild pancreatitis 3. BMI 25.4 4. Prostate issues 5. Diverticulosis of the colon 6. Internal hemorrhoids 7. Status post colonoscopy August 2014 with removal of sigmoid colon polyp at 20 cm and diagnosis of diverticulosis of the colon and internal hemorrhoids Subjective: No major events or complaints; no major abd pain and under control with medications; no n/v/d; no sob or cp; - flatus; - BM; - activity Objective: Vitals: See below Exam: GENERAL: On exam, the patient was sitting in a chair and appeared to be comfortable and in no acute distress. ABDOMEN: Soft, nontender and nondistended. Incision dressings are clean, dry and intact without any evidence of obvious underlying erythema, edema, discharge , or hernia. There are no peritoneal signs or guarding. SKIN: Skin appears to be pink and feels warm to touch. NEUROLOGIC: Patient is awake, alert, and follows commands appropriately. Exam/Review of Systems Vital Signs Vitals Vital Signs Date Time Temp Pulse Resp B/P Pulse Ox O2 Delivery O2 Flow Rate FiO2 06/12/16 07:11 99.1 81 18 97/66 93 06/12/16 03:00 Room Air 06/11/16 19:00 2.0 Intake and Output 06/11/16 06/11/16 06/12/16 15:00 23:00 07:00 Intake Total 600 ml 1500 ml 1380 ml Output Total 25 ml 100 ml 2050 ml Balance 575 ml 1400 ml -670 ml Results Result Diagram: 06/12/16 0507 06/12/16 0507 ALFRED JONES M.D. Jun 12, 2016 16:12
== END 2016-06-12 15:55 | disposition home or self-care (01) | DRG 343 ==
LOC: E/R 06:29 → MS2 09:09
PROVIDERS: ADMIT Internal Medicine; ATTEND Internal Medicine
PROC: 0DTJ4ZZ Resection of Appendix, Percutaneous Endoscopic Approach (ICD-10-PCS; principal; 2016-06-10)
DX: K35.80 Unspecified acute appendicitis (principal)
CPT/HCPCS: 74177; 80053; 81003; 82150; 83605; 83690; 83735; 83880; 84100; 85025; 85610; 85730; 88304; 93005; J1170; J1335; J1650; J2250; J2270; J2405; J2543; J2710; J3010; J3480; J7030; Q9967

== ENCOUNTER 2016-07-04 10:48 | Outpatient (CLI) | payer OTHER ==
[~2016-07-04] VITALS: Ht 158.8 cm; Wt 69.5 kg
[~2016-07-04 10:48] MED LIST: HYDR-3498 PO
[2016-07-04 11:00] VITALS: BP 132/81; PULSE 94; RESP 18; Ht 158.8 cm; Wt 69.5 kg
--- NOTE | 2016-07-04 11:35 | PN ---
Date/Time of Note Date/Time of Note DATE: 07/04/16 TIME: 11:06 Assessment/Plan Assessment/Plan Assessment/Plan [facility] Progress Note Date of Service: 07/04/16 Today's Impression & Plan: Overall doing well post op without major issues. No major wound problems. No obvious post operative complication. With above assessment, I've recommended the following for today: 1. F/u with PCP 2. F/u with us prn Thank you again for your great care of this very pleasant patient and wonderful family. If there are any questions, please feel free to call me at [phone]. TOTAL VISIT TIME: 20 minutes of which more than half was spent in [id number] discussion with the patient, possibly including family, as well as coordination of care between multiple physicians and providers. Disclaimer: Inadvertent spelling or grammatical errors are likely due to EHR/ dictation software use and do not reflect on the overall quality of patient care. Updated Clinical Summary: The patient is a very-pleasant 65-year-old gentleman with comorbid issues including BMI 25.4 and no other obvious or major known medical issues, presenting with what appears to be acute appendicitis as well as pancreatitis ( lipase greater than 1000). After 24 hour wait, lipase had improved. S/p lap appy with partial cecectomy 06/11/16. Past and Present Comorbidities: 1. Acute appendicitis, s/p lap appy with partial cecectomy 2. Mild pancreatitis 3. BMI 25.4 4. Prostate issues 5. Diverticulosis of the colon 6. Internal hemorrhoids 7. Status post colonoscopy August 2014 with removal of sigmoid colon polyp at 20 cm and diagnosis of diverticulosis of the colon and internal hemorrhoids Subjective: No major events or complaints; no major abd pain and no longer taking pain medications; no n/v/d; no sob or cp; + flatus; + BM; + activity Objective: Vitals: See below Exam: GENERAL: On exam, the patient was sitting in a chair and appeared to be comfortable and in no acute distress. ABDOMEN: Soft, nontender and nondistended. Incisions are clean, dry and intact without any evidence of obvious underlying erythema, edema, discharge, or hernia. There are no peritoneal signs or guarding. SKIN: Skin appears to be pink and feels warm to touch. NEUROLOGIC: Patient is awake, alert, and follows commands appropriately. ALFRED JONES M.D. Jul 04, 2016 11:23
== END 2016-07-04 16:26 | disposition home or self-care (01) ==
LOC: HPC 10:48
PROVIDERS: ATTEND Transplant Surgery
DX: K35.80 Unspecified acute appendicitis (principal); K85.90 Acute pancreatitis without necrosis or infection, unspecified; K57.30 Diverticulosis of large intestine without perforation or abscess without bleeding; K64.8 Other hemorrhoids
CPT/HCPCS: G0463